=== PATIENT | female | born 2000 | race Hispanic/Latino ===

== ENCOUNTER 2023-04-07 13:24 | Outpatient (CLI) | payer BC, SELFPAY ==
[2023-04-07 14:21] LABS: Beta HCG Quantitative < 2.39 mIU/ML
== END 2023-04-07 13:25 | disposition home or self-care (01) ==
LOC: ANHLAB 13:29
PROVIDERS: PCP Obstetrics & Gynecology; Visit Provider Obstetrics & Gynecology
DX: Z30.9 Encounter for contraceptive management, unspecified (principal)
CPT/HCPCS: 36415; 84702